=== PATIENT | female | born 1985 | race Caucasian/White ===

== ENCOUNTER 2022-11-25 07:59 | Outpatient (CLI) | payer BC | END 2022-11-25 08:00 | disposition home or self-care (01) | LOC: CSHMAMMO 07:59 | PROVIDERS: ATTEND Nurse Practitioner Women's Health | DX: N63.21 Unspecified lump in the left breast, upper outer quadrant (principal) | CPT/HCPCS: 77066; G0279 ==

== ENCOUNTER 2023-05-09 15:42 | Emergency (ER) | payer BC ==
[2023-05-09 17:36] LABS: #Eosinphils 0.1 10x3/uL (0.0-0.5); #Monocytes 0.5 10x3/uL (0.0-1.1); #Neutrophils 7.5 10x3/uL (1.5-8.4); %Basophils 0.3 % (0.0-2.0); %Eosinophils 0.5 % (0.0-6.0); %Lymphocytes 18.2 % (18.0-47.0); %Monocytes 4.6 % (0.0-10.0); %Neutrophils 76.1 % (40.0-75.0); Hematocrit 39.3 % (34.9-44.5); Mean Corpuscular HGB CONC 33.1 g/dL (32.0-36.0); Mean Corpuscular Hemoglobin 29.2 pg (27.0-33.0); Mean Corpuscular Volume 88.3 fl (81.6-98.3); Mean Platelet Volume 12.1 fl (7.4-10.4); Platelet Count 187 10x3/uL (150-450); RBC Distribution Width 13.2 % (11.5-14.5); Red Blood Cell (RBC) Count 4.45 10x6/uL (3.90-5.03); White Blood Cell (WBC) Count 9.8 10x3/uL (3.5-10.5)
[2023-05-09 17:45] LABS: BHCG - Serum Negative (NEGATIVE); Pregs Control Background? CLEAR/WHITE (CLR/WHITE); Pregs Control Bar Appear? YES (CONTROL BAR)
[2023-05-09 17:48] LABS: ALT (SGPT) 11 U/L (8-55); AST (SGOT) 14 U/L (5-34); Albumin 4.6 g/dL (3.5-5.0); Alkaline Phosphatase 51 U/L (40-110); Anion Gap 17 mmol/L (10-20); BUN (Urea Nitrogen) 12 mg/dL (7.0-18.7); Bilirubin, Total 0.5 mg/dL (0.2-1.2); Calc. Creatinine Clearance 0 mL/min (70-130); Calcium 9.4 mg/dL (7.8-10.44); Carbon Dioxide 21 mmol/L (22-29); Chloride 106 mmol/L (98-107); Estimated GFR 99; Globulin 3.2 g/dL (2.4-3.5); Glucose 80 mg/dL (70-105); Potassium 3.5 mmol/L (3.5-5.1); Protein, Total 7.8 g/dL (6.0-8.3); Sodium 140 mmol/L (136-145)
== END 2023-05-09 19:49 | disposition home or self-care (01) ==
LOC: CSHERS 15:42
DX: H49.12 Fourth [trochlear] nerve palsy, left eye (principal); H53.2 Diplopia; I10 Essential (primary) hypertension
CPT/HCPCS: 36415; 70496; 80053; 84703; 85025